=== PATIENT | male | born 1995 | race Hispanic/Latino ===

== ENCOUNTER 2020-02-18 07:59 | Emergency (ER) | payer SELFPAY ==
[~2020-02-18] VITALS: Ht 162.6 cm; Wt 77.0 kg
[2020-02-18] MEDS ORDERED: AMOXICILLIN500 MG PO (09:18)
[2020-02-18 09:35] VITALS: BP 127/70
--- NOTE | 2020-02-20 09:18 | NUR ---
02/19/2020 Patient notified of results via service worker Terese Noonan.
== END 2020-02-18 09:30 | disposition home or self-care (01) | DRG 179 ==
LOC: ED 07:59
DX: U07.1 COVID-19 (principal)